=== PATIENT | male | born 1960 | race Native Hawaiian/Other Pacific Islander ===

== ENCOUNTER 2018-08-05 08:53 | Outpatient (CLI) | payer BC | END 2018-08-05 23:21 | disposition home or self-care (01) | LOC: US 08:53 | DX: E04.8 Other specified nontoxic goiter (principal) ==

== ENCOUNTER 2019-02-19 17:47 | Outpatient (CLI) | payer OTHER | END 2019-02-19 20:29 | disposition home or self-care (01) | LOC: RAD 17:47 | DX: M25.551 Pain in right hip (principal) ==

== ENCOUNTER 2023-03-19 09:07 | Emergency (ER) | payer OTHER ==
[~2023-03-19] VITALS: Ht 180.3 cm; Wt 104.3 kg
[2023-03-19 09:15] VITALS: TEMP 97.5
[2023-03-19 10:02] LABS: POTASSIUM 3.9 mmol/L (3.6-5.2)
[2023-03-19 10:03] LABS: PLATELET COUNT 246 K/uL (142-355)
[2023-03-19 10:57] VITALS: BP 136/72
== END 2023-03-19 10:57 | disposition home or self-care (01) ==
LOC: ED 09:07
PROVIDERS: Emergency Medicine Emergency Medical Services
DX: R07.89 Other chest pain (principal)
CPT/HCPCS: 36415; 36600; 80053; 82805; 83880; 84484; 85027; 85610; 93005; 99284

== ENCOUNTER 2023-04-24 12:27 | Outpatient (CLI) | payer OTHER | END 2023-04-24 21:58 | LOC: RAD 12:27 | PROVIDERS: ATTEND Nurse Practitioner Family | DX: I10 Essential (primary) hypertension (principal) ==